=== PATIENT | female | born 1980 | race Caucasian/White ===

== ENCOUNTER 2018-11-23 11:36 | Emergency (ER) | payer OTHER ==
[~2018-11-23] VITALS: Ht 180.3 cm; Wt 127.0 kg
--- NOTE | 2018-11-23 11:36 | NUR ---
BROUGHT BACK TO BED #6 AND TRIAGED. REPORT GIVEN TO LJ
[2018-11-23 11:37] VITALS: BP_SYST 117
--- NOTE | 2018-11-23 11:40 | NUR ---
CHI Bobo at bedside examining patient.
--- NOTE | 2018-11-23 11:40 | NUR ---
PT is accompanied by her daughter at bedside. PT advised that she had fallen onto moving boxes and has pain on her right side. The pain is concentrated in the rib area per patient. PT has mobility of both extremities although she complains of pain when moving her right arm. PT presented sitting at the gurney and breathing symetrically in a regular pattern.
--- NOTE | 2018-11-23 12:00 | NUR ---
Patient transported to radiology via ambulatory, accompanied by rad staff.
[2018-11-23] MEDS ORDERED: IBUPROFEN 600 MG TABLET PO ONE (12:30)
--- NOTE | 2018-11-23 12:30 | NUR ---
Patient resting quietly. No acute distress noted. Vital signs within normal range.
[2018-11-23 12:51] VITALS: BP_SYST 117
--- NOTE | 2018-11-23 12:52 | NUR ---
Patient given written and verbal discharge instructions and verbalizes understanding. ER MD discussed with patient the results and treatment provided. Patient in stable condition. ID arm band removed. Rx of Ibuprofen given. Patient educated on pain management and to follow up with PMD. Pain Scale 6/10. Opportunity for questions provided and answered. Medication side effect fact sheet provided.
== END 2018-11-23 12:52 | disposition home or self-care (01) ==
LOC: SED 11:36
DX: S20.211A Contusion of right front wall of thorax, initial encounter (principal); F41.9 Anxiety disorder, unspecified; R03.0 Elevated blood-pressure reading, without diagnosis of hypertension; Z90.49 Acquired absence of other specified parts of digestive tract; W01.0XXA Fall on same level from slipping, tripping and stumbling without subsequent striking against object, initial encounter; Y93.89 Activity, other specified; Y92.89 Other specified places as the place of occurrence of the external cause; Y99.8 Other external cause status
CPT/HCPCS: 71100; 99283